=== PATIENT | female | born 1980 | race Caucasian/White ===

== ENCOUNTER 2023-10-26 17:05 | Emergency (ER) | payer OTHER ==
[~2023-10-26] VITALS: Ht 165.1 cm; Wt 70.3 kg
[2023-10-26 17:16] VITALS: BP 136/89; TEMP 98.1
[2023-10-26] MEDS ORDERED: IBUP-1955 PO (17:51)
[2023-10-26 17:58] VITALS: O2SAT 99
== END 2023-10-26 17:59 | disposition home or self-care (01) ==
LOC: ER 17:13
DX: T14.90XA Injury, unspecified, initial encounter (principal); W01.10XA Fall on same level from slipping, tripping and stumbling with subsequent striking against unspecified object, initial encounter; Y93.89 Activity, other specified; Y92.89 Other specified places as the place of occurrence of the external cause; Y99.8 Other external cause status